=== PATIENT | female | born 1940 | race Caucasian/White ===

== ENCOUNTER 2016-12-07 09:53 | Emergency (ER) | payer MEDICARE, OTHER ==
[2016-12-07] MEDS ORDERED: PREDNISONE 20 MG TAB PO ONE (10:00)
--- NOTE | 2016-12-07 10:08 | Emergency Department Record ---
History of Present Illness - General Chief Complaint: Neck Injury/Pain Stated Complaint: NECK PAIN Time Seen by Provider: 12/07/16 10:00 Source: Patient, Family Mode of Arrival: Ambulatory Limitations: No limitations - History of Present Illness Initial Comments: 76 yo female presents with neck muscle pain since . She had five days of company and did more activity than usual. 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 No falls or trauma. No numbness, tingling, weakness, or new symptoms from prior experiences. She follows with Dr Mendoza. No fevers, No prior cervical spine surgery. MD Complaint: Neck pain Onset/Timin -: Days(s) Place: Home Radiation: Other Severity: Severe, Similar to prior neck pain Severity scale (1-10): 7 Quality: Sharp Improves With: Immobilization Worsens With: Movement of neck, Swallowing Context: Lifting Associated Symptoms: None Treatments Prior to Arrival: Ibuprofen, Cervical collar, Heat therapy - Related Data Home Medications Medication Instructions Recorded Confirmed Last Taken Fluticasone Propionate [Flonase] 1 inh INH DAILY 12/07/16 12/07/16 12/07/16 Previous Rx's Medication Instructions Recorded Prednisone [Prednisone 20Mg] 20 mg PO BID #10 tab 12/07/16 Allergies Allergy/AdvReac Type Severity Reaction Status Date / Time meperidine HCl [From Demerol] Allergy NAUSEA AND Verified 06/06/15 07:54 VOMITING neomycin Allergy HIVES Verified 06/06/15 07:54 Travel Screening - Travel/Exposure Within Last 30 Days Have you traveled within the last 30 days?: No Review of Systems Constitutional: Denies: Chills, Fever, Malaise, Weakness Eyes: Denies: Eye discharge ENT: Denies: Congestion, Throat pain Respiratory: Denies: Cough, Dyspnea, Hemoptysis, Stridor, Wheezes Cardiovascular: Reports: Palpitations (Follow up tomorrow with Dr Blake in [place]). Denies: Chest pain, Syncope Endocrine: Denies: Fatigue Gastrointestinal: Denies: Diarrhea, Nausea, Vomiting Genitourinary: Denies: Dysuria, Urgency Musculoskeletal: Reports: As per HPI, Arthralgia, Neck pain Skin: Denies: Bruising, Change in color, Rash Neurological: Reports: Numbness (chronic right 5th finger. No new or changed). Denies: Headache, Weakness Psychiatric: Denies: Anxiety Hematological/Lymphatic: Denies: Easy bleeding, Easy bruising Past Medical History - SOCIAL HISTORY Smoking Status: Light tobacco smoker (<10/day) - RESPIRATORY Hx Respiratory Disorders: Yes Hx Asthma: Yes - CARDIOVASCULAR Hx Cardio Disorders: Yes Hx Hypertension: Yes - NEURO Hx Neuro Disorders: Yes Hx Dizziness: Yes - GI Hx GI Disorders: Yes Hx Diverticulitis: Yes Hx Reflux: Yes Hx Irritable Bowel: Yes - Hx Genitourinary Disorders: No - ENDOCRINE Hx Endocrine Disorders: No - MUSCULOSKELETAL Hx Musculoskeletal Disorders: Yes Hx Fibromyalgia: Yes Comment:: degenerative neck - PSYCH Hx Psych Problems: Yes Hx Anxiety: Yes (hx panic attacks) - HEMATOLOGY/ONCOLOGY Hx Hematology/Oncology Disorders: Yes Comment:: lymphocytosis Family Medical History *Cancer Comment: uncle Hx Dementia: Mother, Brother/Sister Hx Heart Disease: Father Physical Exam - General General Appearance: Alert, Oriented x3, Cooperative, No acute distress Limitations: No limitations - Head Head exam: Normal inspection - Eye Eye exam: Normal appearance, PERRL. negative: Conjunctival injection, Periorbital swelling Pupils: Normal accommodation - ENT ENT exam: Normal exam, Mucous membranes moist, Normal orophraynx Ear exam: Normal external inspection Nasal Exam: Normal inspection Mouth exam: Normal external inspection Teeth exam: Normal inspection Throat exam: Normal inspection - Neck Neck exam: Normal inspection, Full ROM, Tenderness (left paraspinal, no rash, no deformity). negative: Meningismus - Respiratory Respiratory exam: Normal lung sounds bilaterally. negative: Respiratory distress - Cardiovascular Cardiovascular Exam: Regular rate, Normal rhythm, Normal heart sounds Peripheral Pulses: 2+: Radial (R), Radial (L) - Rectal Rectal exam: Deferred - exam: Deferred - Extremities Extremities exam: Normal inspection. negative: Tenderness - Back Back exam: Reports: Normal inspection, Full ROM. 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 negative: Motor sensory deficit - Psychiatric Psychiatric exam: Normal affect, Normal mood - Skin Skin exam: Dry, Intact, Normal color, Warm Course Vital Signs 12/07/16 09:55 Temperature 97.7 F Pulse Rate 91 H Respiratory 16 Rate Blood Pressure 139/104 Pulse Ox 98 Disposition Disposition: Discharge Clinical Impression: Cervical sprain Qualifiers: Encounter type: initial encounter Qualified Code(s): S13.9XXA - Sprain of joints and ligaments of unspecified parts of neck, initial encounter Disposition: Home, Self-Care Condition: (1) Good Instructions: Cervical Sprain (ED) Additional Instructions: Follow up this week with Dr Mendoza Return immediately if you have fever, uncontrolled pain, weakness, numbness, arm radiation Prescriptions: Prednisone [Prednisone 20Mg] 20 mg PO BID #10 tab Forms: Patient Portal Access Time of Disposition: 10:07 Quality - Quality Measures Quality Measures: N/A - Blood Pressure Screening Does Patient Have Any of the Following: No Blood Pressure Classification: Hypertensive Reading Systolic Measurement: 139 Diastolic Measurement: 104 Screening for High Blood Pressure: < Pre-Hypertensive BP, F/U Documented > [ G8950] Pre-Hypertensive Follow-up Interventions: Referral to alternative/primary care provider.
== END 2016-12-07 10:24 | disposition home or self-care (01) ==
LOC: ER 09:53
DX: S13.9XXA Sprain of joints and ligaments of unspecified parts of neck, initial encounter (principal); X50.9XXA Other and unspecified overexertion or strenuous movements or postures, initial encounter; Y92.009 Unspecified place in unspecified non-institutional (private) residence as the place of occurrence of the external cause
CPT/HCPCS: 99282; J7512

== ENCOUNTER 2016-12-20 09:45 | Emergency (ER) | payer MEDICARE, OTHER ==
[2016-12-20] MEDS ORDERED: DIAZEPAM 5 MG/1 ML TUBX IM ONE (10:29)
--- NOTE | 2016-12-20 11:00 | Emergency Department Record ---
History of Present Illness - General Chief Complaint: Neck Injury/Pain Stated Complaint: NECK PAIN Time Seen by Provider: 12/20/16 10:15 Source: Patient Mode of Arrival: Ambulatory Limitations: No limitations - History of Present Illness Initial Comments: pt has a hx of chronic neck pain, djd. she was lifting something 2 wks ago and had an increase in pain. she came in and was given a course of steroids which usualoy help but they did not this time. she has contd to have pain. she has no numbness. she does not want pain meds Complaint: Neck pain Onset/Timin -: Days(s) Place: Home Radiation: Other Severity: Mild, Similar to prior neck pain Quality: Other Consistency: Constant Improves With: Immobilization, Remaining still Worsens With: None Associated Symptoms: None Treatments Prior to Arrival: None - Related Data Allergies Allergy/AdvReac Type Severity Reaction Status Date / Time meperidine HCl [From Demerol] Allergy NAUSEA AND Verified 12/07/16 10:03 VOMITING neomycin Allergy HIVES Verified 12/07/16 10:03 Travel Screening - Travel/Exposure Within Last 30 Days Have you traveled within the last 30 days?: No Review of Systems Reviewed: No additional complaints except as noted below Constitutional: Reports: As per HPI. Denies: Chills, Fever, Malaise, Night sweats, Weakness, Weight change Eyes: Reports: As per HPI. Denies: Eye discharge, Eye pain, Photophobia, Vision change ENT: Reports: As per HPI. Denies: Congestion, Dental pain, Ear pain, Epistaxis , Hearing loss, Throat pain Respiratory: Reports: As per HPI. Denies: Cough, Dyspnea, Hemoptysis, Stridor, Wheezes Cardiovascular: Reports: As per HPI. Denies: Arrhythmia, Chest pain, Dyspnea on exertion, Edema, Murmurs, Orthopnea, Palpitations, Paroxysmal nocturnal dyspnea, Rheumatic Fever, Syncope Endocrine: Reports: As per HPI. Denies: Fatigue, Heat or cold intolerance, Polydipsia, Polyuria Gastrointestinal: Reports: As per HPI. Denies: Abdominal pain, Constipation, Diarrhea, Hematemesis, Hematochezia, Melena, Nausea, Vomiting Genitourinary: Reports: As per HPI. Denies: Abnormal menses, Discharge, Dyspareunia, Dysuria, Frequency, Hematuria, Incontinence, Retention, Urgency Musculoskeletal: Reports: As per HPI. Denies: Arthralgia, Back pain, Gout, Joint swelling, Myalgia, Neck pain Skin: Reports: As per HPI. Denies: Bruising, Change in color, Change in hair/ nails, Lesions, Pruritus, Rash Neurological: Reports: As per HPI. Denies: Abnormal gait, Confusion, Headache, Numbness, Paresthesias, Seizure, Tingling, Tremors, Vertigo, Weakness Psychiatric: Reports: As per HPI. Denies: Anxiety, Auditory hallucinations, Depression, Homicidal thoughts, Suicidal thoughts, Visual hallucinations Hematological/Lymphatic: Reports: As per HPI. Denies: Anemia, Blood Clots, Easy bleeding, Easy bruising, Swollen glands Past Medical History - SOCIAL HISTORY Smoking Status: Light tobacco smoker (<10/day) Alcohol Use: None Drug Use: None - RESPIRATORY Hx Respiratory Disorders: Yes Hx Asthma: Yes - CARDIOVASCULAR Hx Cardio Disorders: Yes Hx Hypertension: Yes - NEURO Hx Neuro Disorders: Yes Hx Dizziness: Yes - GI Hx GI Disorders: Yes Hx Diverticulitis: Yes Hx Reflux: Yes Hx Irritable Bowel: Yes - Hx Genitourinary Disorders: No - ENDOCRINE Hx Endocrine Disorders: No - MUSCULOSKELETAL Hx Musculoskeletal Disorders: Yes Hx Fibromyalgia: Yes Comment:: degenerative neck - PSYCH Hx Psych Problems: Yes Hx Anxiety: Yes (hx panic attacks) - HEMATOLOGY/ONCOLOGY Hx Hematology/Oncology Disorders: Yes Comment:: lymphocytosis Family Medical History Any Significant Family History?: Yes *Cancer Comment: uncle Hx Dementia: Mother, Brother/Sister Hx Heart Disease: Father Physical Exam - General General Appearance: Alert, Oriented x3, Cooperative, Mild distress - Head Head exam: Normal inspection - Eye Eye exam: Normal appearance, PERRL, EOMI Pupils: Normal accommodation - ENT ENT exam: Normal exam, Mucous membranes moist, Normal external ear exam, Normal orophraynx Ear exam: Normal external inspection. negative: External canal tenderness Nasal Exam: Normal inspection. negative: Discharge, Sinus tenderness Mouth exam: Normal external inspection, Tongue normal Teeth exam: Normal inspection. negative: Dental caries Throat exam: Normal inspection. negative: Tonsillar erythema, Tonsillar exudate - Neck Neck exam: Normal inspection, Tenderness. negative: Full ROM - Respiratory Respiratory exam: Normal lung sounds bilaterally. negative: Respiratory distress - Cardiovascular Cardiovascular Exam: Regular rate, Normal rhythm, Normal heart sounds - GI/Abdominal GI/Abdominal exam: Soft, Normal bowel sounds. negative: Tenderness - Rectal Rectal exam: Deferred - exam: Deferred - Extremities Extremities exam: Normal inspection, Full ROM, Normal capillary refill. negative: Tenderness - Back Back exam: Reports: Normal inspection, Full ROM. Denies: Muscle spasm, Rash noted, Tenderness - Neurological Neurological exam: Alert, CN II-XII intact, Normal gait, Oriented X3 - Psychiatric Psychiatric exam: Normal affect, Normal mood - Skin Skin exam: Dry, Intact, Normal color, Warm Course Vital Signs 12/20/16 09:49 Temperature 97.7 F Pulse Rate 108 H Respiratory 20 Rate Blood Pressure 134/45 Pulse Ox 98 Disposition Disposition: Discharge Clinical Impression: Cervical strain, acute Qualifiers: Encounter type: initial encounter Qualified Code(s): S16.1XXA - Strain of muscle, fascia and tendon at neck level, initial encounter Disposition: Home, Self-Care Forms: Patient Portal Access Quality - Blood Pressure Screening Does Patient Have Any of the Following: No Blood Pressure Classification: Pre-Hypertensive BP Reading Systolic Measurement: 134 Diastolic Measurement: 45 Screening for High Blood Pressure: < Pre-Hypertensive BP, F/U Documented > [ G8950]
== END 2016-12-20 11:22 | disposition home or self-care (01) ==
LOC: ER 09:45
DX: S16.1XXA Strain of muscle, fascia and tendon at neck level, initial encounter (principal); X50.9XXA Other and unspecified overexertion or strenuous movements or postures, initial encounter; Y92.009 Unspecified place in unspecified non-institutional (private) residence as the place of occurrence of the external cause
CPT/HCPCS: 96372; 99283; J3360

== ENCOUNTER 2017-02-09 02:40 | Emergency (ER) | payer MEDICARE, OTHER ==
[2017-02-09] MEDS ORDERED: METHYLPREDNISOLONE PF 125MG/VIAL IM ONE (02:56)
--- NOTE | 2017-02-09 03:02 | Emergency Department Record ---
History of Present Illness - General Chief Complaint: Neck Injury/Pain Stated Complaint: severe neck pain Time Seen by Provider: 02/09/17 02:41 Source: Patient Mode of Arrival: Ambulatory Limitations: No limitations - History of Present Illness Initial Comments: 76 yo female presents to ED with an exacerbation of her chronic neck pain symptoms. Patient reports a history of similar episodes which typically improve with either Prednisone or Valium in addition to Advil, patient reports that Valium and Advil were not helping significantly over the past several days. Patient denies fevers, chill, or recent injury. Patient also denies numbness, tingling, or extremity weakness symptoms. MD Complaint: Neck pain Onset/Timin -: Hour(s) Place: Home Severity: Severe Severity scale (1-10): 10 Quality: Aching Consistency: Constant Improves With: Immobilization Worsens With: Movement of neck Associated Symptoms: None Treatments Prior to Arrival: Ibuprofen, Prescription pain med, Other - Related Data Previous Rx's Medication Instructions Recorded Diazepam [Valium] 5 mg PO TID #14 tab 12/20/16 Prednisone [Prednisone 20Mg] 20 mg PO BID #14 tab 02/09/17 Allergies Allergy/AdvReac Type Severity Reaction Status Date / Time meperidine HCl [From Demerol] Allergy NAUSEA AND Verified 12/07/16 10:03 VOMITING neomycin Allergy HIVES Verified 12/07/16 10:03 Travel Screening - Travel/Exposure Within Last 30 Days Have you traveled within the last 30 days?: No - Travel/Exposure Within Last Year Have you traveled outside the [place] in the last year?: No - Additonal Travel Details Have you been exposed to anyone with a communicable illness?: No - Travel Symptoms Symptom Screening: None Review of Systems Constitutional: Denies: Chills, Fever, Malaise, Night sweats Eyes: Denies: Eye discharge, Eye pain ENT: Denies: Congestion, Ear pain, Epistaxis Respiratory: Denies: Cough, Dyspnea Cardiovascular: Denies: Chest pain, Dyspnea on exertion Endocrine: Denies: Fatigue, Heat or cold intolerance Gastrointestinal: Denies: Abdominal pain, Nausea, Vomiting Genitourinary: Denies: Incontinence, Retention Musculoskeletal: Reports: Neck pain. Denies: Arthralgia, Back pain, Gout, Joint swelling Skin: Denies: Bruising, Change in color Neurological: Denies: Abnormal gait, Confusion, Headache, Numbness, Paresthesias , Tingling Psychiatric: Denies: Anxiety Hematological/Lymphatic: Denies: Anemia, Blood Clots Past Medical History - SOCIAL HISTORY Smoking Status: Light tobacco smoker (<10/day) Alcohol Use: None Drug Use: None - RESPIRATORY Hx Respiratory Disorders: Yes Hx Asthma: Yes - CARDIOVASCULAR Hx Cardio Disorders: Yes Hx Hypertension: Yes - NEURO Hx Neuro Disorders: Yes Hx Dizziness: Yes - GI Hx GI Disorders: Yes Hx Diverticulitis: Yes Hx Reflux: Yes Hx Irritable Bowel: Yes - Hx Genitourinary Disorders: No - ENDOCRINE Hx Endocrine Disorders: No - MUSCULOSKELETAL Hx Musculoskeletal Disorders: Yes Hx Fibromyalgia: Yes Comment:: degenerative neck - PSYCH Hx Psych Problems: Yes Hx Anxiety: Yes (hx panic attacks) - HEMATOLOGY/ONCOLOGY Hx Hematology/Oncology Disorders: Yes Comment:: lymphocytosis Family Medical History Any Significant Family History?: No *Cancer Comment: uncle Hx Dementia: Mother, Brother/Sister Hx Heart Disease: Father Physical Exam - General General Appearance: Alert, Oriented x3, Cooperative, Mild distress, Other (soft collar in place) Limitations: No limitations - Head Head exam: Atraumatic, Normocephalic, Normal inspection Head exam detail: negative: Abrasion, Contusion, Stern's sign, General tenderness, Hematoma, Laceration - Eye Eye exam: Normal appearance. negative: Conjunctival injection, Periorbital swelling, Periorbital tenderness, Scleral icterus - ENT Ear exam: negative: Auricular hematoma, Auricular trauma Nasal Exam: negative: Active bleeding, Discharge, Dried blood, Foreign body Mouth exam: negative: Drooling, Laceration, Muffled voice, Tongue elevation - Neck Neck exam: Tenderness, Other (Mild TTP along the C6 region bilaterally) - Respiratory Respiratory exam: Normal lung sounds bilaterally. negative: Respiratory distress, Rhonchi, Stridor, Wheezes - Cardiovascular Cardiovascular Exam: Regular rate, Normal rhythm, Normal heart sounds - GI/Abdominal GI/Abdominal exam: Soft. negative: Rebound, Rigid, Tenderness - Rectal Rectal exam: Deferred - exam: Deferred - Extremities Extremities exam: Normal inspection. negative: Calf tenderness, Pedal edema, Tenderness - Back Back exam: Denies: CVA tenderness (R), CVA tenderness (L) - Neurological Neurological exam: Alert, Normal gait, Oriented X3. negative: Motor sensory deficit - Psychiatric Psychiatric exam: Normal affect, Normal mood - Skin Skin exam: Normal color. negative: Abrasion Type of lesion: negative: abrasion Course Vital Signs 02/09/17 02:41 Temperature 97.5 F L Pulse Rate 69 Respiratory 20 Rate Blood Pressure 156/114 Pulse Ox 98 - Reevaluation(s) Reevaluation #1: 02/09/17 03:03 Patient seen and examined, reports that she is opposed to narcotic pain medication. Will administer solumedrol IM and prescribe Prednisone in addition to Valium that the patient has at home currently. Patient appears stable for discharge at this time. Disposition Disposition: Discharge Clinical Impression: Cervical pain (neck) Disposition: Home, Self-Care Condition: (2) Stable Instructions: Neck Pain (ED) Additional Instructions: Return to ED if your symptoms worsen of if you have any concerns. Prednisone as directed. Follow-up with your family doctor in 1-3 days as directed. Prescriptions: Prednisone [Prednisone 20Mg] 20 mg PO BID #14 tab Forms: Patient Portal Access Time of Disposition: 03:08 Quality - Quality Measures Quality Measures: N/A - Blood Pressure Screening Does Patient Have Any of the Following: No Blood Pressure Classification: Hypertensive Reading Systolic Measurement: 156 Diastolic Measurement: 114 Screening for High Blood Pressure: < First Hypertensive BP, F/U Documented > [ G8950] First Hypertensive Follow-up Interventions: Referral to alternative/primary care provider.
== END 2017-02-09 03:26 | disposition home or self-care (01) ==
LOC: ER 02:40
DX: G89.21 Chronic pain due to trauma (principal); M54.2 Cervicalgia
CPT/HCPCS: 96372; 99283; J2930

== ENCOUNTER 2017-11-01 10:09 | Emergency (ER) | payer MEDICARE, OTHER ==
[2017-11-01] MEDS ORDERED: ACETAMINOPHEN 1,000 MG/100 ML BTL IVPB ONE (10:35)
[2017-11-01] MEDS ORDERED: 0.9 % SODIUM CHLORIDE 1,000 ML BAG IV ONE (10:35)
--- NOTE | 2017-11-01 11:05 | Emergency Department Record ---
History of Present Illness - General Chief Complaint: Abdominal Pain Stated Complaint: FEVER,ABD PAIN Time Seen by Provider: 11/01/17 10:31 Source: Patient, Family Mode of Arrival: Ambulatory Limitations: No limitations - History of Present Illness Initial Comments: 77 yo female presents with about 5-6 days of increasing LLQ pain. She has had some fevers as well. No diarrhea. Her bowel movements have become more firm. The pain stays in the LLQ. If is fairly constant. No vomiting. She has a history of recurrent diverticulitis in the past. No rash. No dysuria. MD Complaint: Abdominal pain Onset/Timin -: Days(s) Location: LLQ Radiation: None Migration to: LLQ Severity: Moderate Severity scale (1-10): 8 Quality: Sharp Consistency: Intermittent Improves With: Nothing Worsens With: Nothing Associated Symptoms: Other - Related Data Previous Rx's Medication Instructions Recorded Amoxicillin/Potassium Clav 1 tab PO BID #20 tab 11/01/17 [Augmentin 875-125 Tablet] Ondansetron [Zofran Odt] 4 mg PO Q8H #20 tab.rapdis 11/01/17 Allergies Allergy/AdvReac Type Severity Reaction Status Date / Time meperidine HCl [From Demerol] Allergy NAUSEA AND Verified 11/01/17 10:21 VOMITING neomycin Allergy HIVES Verified 11/01/17 10:21 metronidazole [From Flagyl] AdvReac VOMITING Verified 11/01/17 14:00 Travel Screening - Travel/Exposure Within Last 30 Days Have you traveled within the last 30 days?: No - Travel/Exposure Within Last Year Have you traveled outside the [place] in the last year?: No - Additonal Travel Details Have you been exposed to anyone with a communicable illness?: No - Travel Symptoms Symptom Screening: None Review of Systems Constitutional: Reports: Fever, Malaise. Denies: Chills Eyes: Denies: Eye discharge ENT: Denies: Congestion, Throat pain Respiratory: Denies: Cough Cardiovascular: Denies: Chest pain, Syncope Endocrine: Denies: Fatigue Gastrointestinal: Reports: As per HPI, Abdominal pain, Constipation. Denies: Diarrhea, Nausea, Vomiting Genitourinary: Denies: Dysuria, Urgency Musculoskeletal: Denies: Arthralgia, Back pain, Myalgia, Neck pain Skin: Denies: Bruising, Change in color, Rash Neurological: Denies: Headache, Numbness, Weakness Psychiatric: Denies: Anxiety Hematological/Lymphatic: Denies: Easy bleeding, Easy bruising Past Medical History - SOCIAL HISTORY Smoking Status: Former smoker Alcohol Use: Rare Drug Use: None - RESPIRATORY Hx Respiratory Disorders: Yes Hx Asthma: Yes - CARDIOVASCULAR Hx Cardio Disorders: Yes Hx Hypertension: Yes - NEURO Hx Neuro Disorders: Yes Hx Dizziness: Yes - GI Hx GI Disorders: Yes Hx Diverticulitis: Yes Hx Reflux: Yes Hx Irritable Bowel: Yes - Hx Genitourinary Disorders: No - ENDOCRINE Hx Endocrine Disorders: No - MUSCULOSKELETAL Hx Musculoskeletal Disorders: Yes Hx Fibromyalgia: Yes Comment:: degenerative neck - PSYCH Hx Psych Problems: Yes Hx Anxiety: Yes (hx panic attacks) - HEMATOLOGY/ONCOLOGY Hx Hematology/Oncology Disorders: Yes Comment:: lymphocytosis Family Medical History Any Significant Family History?: Yes *Cancer Comment: uncle Hx Dementia: Mother, Brother/Sister Hx Heart Disease: Father Physical Exam - General General Appearance: Alert, Oriented x3, Cooperative, No acute distress Limitations: No limitations - Head Head exam: Normal inspection - Eye Eye exam: Normal appearance. negative: Conjunctival injection, Scleral icterus - ENT ENT exam: Normal exam Ear exam: Normal external inspection Nasal Exam: Normal inspection Mouth exam: Normal external inspection - Neck Neck exam: Normal inspection - Respiratory Respiratory exam: Normal lung sounds bilaterally. negative: Respiratory distress - Cardiovascular Cardiovascular Exam: Normal rhythm, Normal heart sounds, Tachycardia - GI/Abdominal GI/Abdominal exam: Soft, Tenderness (Very soft abdomen, she is tender in the LLQ , intact bowel sounds). negative: Distended, Guarding, Rebound, Rigid - Rectal Rectal exam: Deferred - exam: Deferred - Extremities Extremities exam: Normal inspection, Full ROM, Normal capillary refill. negative: Tenderness - Back Back exam: Denies: CVA tenderness (R), CVA tenderness (L) - Neurological Neurological exam: Alert, Oriented X3 - Psychiatric Psychiatric exam: Normal affect, Normal mood - Skin Skin exam: Dry, Intact, Normal color, Warm Course Vital Signs 11/01/17 10:24 Temperature 100.9 F H Pulse Rate 120 H Respiratory 18 Rate Blood Pressure 108/72 Pulse Ox 95 - Reevaluation(s) Reevaluation #1: 11/01/17 11:50 The CBC was reviewed. WBC is 3.2. She has a chronic WBC count between 3 and 4 since 2013 She reports pain is well controlled. Temperature improved. 11/01/17 12:07 Normal renal function. Ready for CT. Medical Decision Making - Lab Data Result diagrams: 11/01/17 10:50 11/01/17 10:50 Disposition Disposition: Discharge Clinical Impression: Diverticulitis Disposition: Home, Self-Care Condition: (1) Good Additional Instructions: Liquid diet the next week Call your doctor tomorrow for close follow up Return if you have fever, pain, vomiting Take the antibiotic until gone Prescriptions: Amoxicillin/Potassium Clav [Augmentin 875-125 Tablet] 1 tab PO BID #20 tab Ondansetron [Zofran Odt] 4 mg PO Q8H #20 tab.rapdis Forms: Patient Portal Access Time of Disposition: 14:10 Quality - Quality Measures Quality Measures: N/A - Blood Pressure Screening Does Patient Have Any of the Following: No Blood Pressure Classification: Normal BP Reading Systolic Measurement: 108 Diastolic Measurement: 72 Screening for High Blood Pressure: < Normal BP, F/U Not Required > [G8783]
[2017-11-01 11:43] LABS: HEMATOCRIT 39.1 % (35.0-47.0); HEMOGLOBIN 12.7 gm/dl (11.6-16.0); MEAN CELL VOLUME 87.5 fl (81-97); MEAN CORPUSCULAR HEMOGLOBIN 28.4 pg (27-33); MEAN CORPUSCULAR HGB CONC 32.5 g/dl (32-36); MEAN PLATELET VOLUME 9.4 fl (7.4-10.4); PLATELET COUNT 309 K/uL (130-400); RED BLOOD COUNT 4.47 M/uL (3.80-5.40); RED CELL DISTRIBUTION WIDTH 15.1 % (11.5-14.5); WHITE BLOOD COUNT W/O DIFF 3.2 K/uL (4.2-12.2)
[2017-11-01 11:54] LABS: BLOOD UREA NITROGEN 12 mg/dL (8-23); CREATININE 0.8 mg/dL (0.5-0.9); EST GLOMERULAR FILTRATION RATE > 60 mL/min
[2017-11-01 11:55] LABS: PLATELET ESTIMATE NORMAL (NORMAL); TOTAL PROTEIN 7.7 g/dL (6.6-8.7)
[2017-11-01 11:57] LABS: GLUCOSE,RANDOM 114 mg/dL (74-109)
[2017-11-01 11:59] LABS: ALB/GLOB RATIO 1.4 (1.1-1.8); ALBUMIN 4.5 g/dL (4.0-5.0); ALT/SGPT 17 U/L (<33); AST/SGOT 21 U/L (10.0-35.0)
[2017-11-01 12:00] LABS: ALKALINE PHOSPHATASE 80 U/L (35-104); LIPASE 30 U/L (13-60)
[2017-11-01 12:17] LABS: URINE APPEARANCE CLEAR; URINE BILIRUBIN NEGATIVE (NEGATIVE); URINE BLOOD TRACE-I (NEGATIVE); URINE COLOR YELLOW; URINE GLUCOSE (UA) NEGATIVE (NEGATIVE); URINE KETONE 15 mg/dL (NEGATIVE); URINE LEUKOCYTE ESTERASE NEGATIVE (NEGATIVE); URINE NITRITE NEGATIVE (NEGATIVE); URINE PROTEIN NEGATIVE (NEGATIVE); URINE UROBILINOGEN 0.2 E.U./dL (0.20 - 1.00)
[2017-11-01 12:40] LABS: URINE BACTERIA FEW; URINE RBC 0 - 2 (NONE SEEN); URINE WBC 0 - 2 (0-2/hpf)
[2017-11-01] MEDS ORDERED: CIPROFLOXACIN HCL 500 MG TABLET PO ONE (13:46)
[2017-11-01] MEDS ORDERED: METRONIDAZOLE 250 MG TABLET PO ONE (13:46)
[2017-11-01] MEDS ORDERED: AMOXICILLIN/POTASSIUM CLAV 875MG/125MG TABLET PO ONE (14:07)
--- NOTE | 2017-11-02 14:32 | CT SCAN REPORT ---
EXAM: CT OF THE ABDOMEN AND PELVIS WITH CONTRAST HISTORY: LEFT LOWER QUADRANT PAIN. INTERMITTENT FEVER FOR TEN DAYS. PREVIOUS HYSTERECTOMY AND APPENDECTOMY. TECHNIQUE: Routine CT images of the abdomen and pelvis were obtained following the intravenous administration of contrast. The amount and type of contrast is noted in the medical record. FINDINGS: There is mild basilar atelectasis or scarring. The gallbladder is present. The liver, pancreas, spleen, and adrenals are unremarkable. The kidneys enhance and excrete contrast normally. There is a moderate hiatal hernia. There is acute sigmoid diverticulitis with associated wall thickening and pericolonic inflammatory change. No evidence for abscess. Elsewhere there is prominent colonic diverticulosis. The appendix is surgically absent. The small bowel is normal in caliber. The bladder is unremarkable. The uterus is surgically absent. The aorta is tortuous though enhances normally with contrast. No aneurysmal dilatation. Mild scattered atherosclerosis. No abdominal or pelvic lymphadenopathy. Mild free fluid. Small fat containing periumbilical hernia. There is a small fat containing midline lower pelvic hernia and a small fat containing right inguinal hernia. No acute osseous abnormality. IMPRESSION: 1. ACUTE SIGMOID DIVERTICULITIS. 2. MODERATE HIATAL HERNIA. 3. SIMILAR FAT CONTAINING PERIUMBILICAL HERNIA, MIDLINE LOWER PELVIC HERNIA, AND RIGHT INGUINAL HERNIA. 4. OTHER CHRONIC FINDINGS ABOVE. JOB NUMBER: [id number] [facility]
== END 2017-11-01 15:13 | disposition home or self-care (01) ==
LOC: ER 10:09
DX: K57.32 Diverticulitis of large intestine without perforation or abscess without bleeding (principal); R50.81 Fever presenting with conditions classified elsewhere; I10 Essential (primary) hypertension; Z87.891 Personal history of nicotine dependence
CPT/HCPCS: 99284 ×2; 96365; 83690; 80053; 81001; 85027; 74177; Q9967; J7030

== ENCOUNTER 2018-05-10 09:55 | Day surgery (SDC) | payer MEDICARE, OTHER ==
[2018-05-10] MEDS ORDERED: PROPOFOL 10 MG/ML VIAL IV ONE (09:56)
[2018-05-10] MEDS ORDERED: LIDOCAINE 2% MDV (20MG/ML) 20ML VIAL IV ONE (09:56)
--- NOTE | 2018-05-13 10:10 | Operative Note ---
DATE OF SERVICE: 05/10/2018. DATE OF SURGERY: 05/10/2018. This is a patient of Roni Mendoza DO. OPERATION: Incomplete colonoscopy. Indication: Episodic bright red rectal bleeding. Patient also with history of adenoma polyps. She returns at this time after 5 years for surveillance. Anesthesia: Intravenous sedation was administered by the Department of Anesthesiology and included Diprivan titrated to effect. PROCEDURE: Following informed consent from this alert individual, including a discussion of the risks and benefits of the procedure and opportunity for patient to ask questions, with patient in the left lateral decubitus position, digital rectal examination was performed. No abnormalities were noted. Following this, the Olympus PCF 180 video colonoscope was inserted in the rectum without resistance. Rectal mucosa had a normal appearance with normal folds and distensibility. The sigmoid colon had extensive diverticulosis noted. There was marked redundancy of the colon at this point, as well, and despite washing the sigmoid with extensive amounts of water, the colonoscope could not be safely advanced due to marked redundancy and resistance. Patient has had previous surgeries, including hysterectomy. At that point, the colonoscope was then slowly withdrawn into the rectum. Retroflexion accomplished by air insufflation demonstrated hypertrophied anal papillae. There was no bleeding noted from the anus, and no definitive bleeding sites identified. The endoscope was straightened and removed. The patient tolerated the procedure well and was returned to the recovery area in stable condition. IMPRESSION: 1. Markedly redundant, fixed sigmoid colon with extensive diverticulosis, precluding advancement of the colonoscope safely through the sigmoid colon. 2. Hypertrophied anal papillae. RECOMMENDATIONS: With the polyp surveillance, I did recommend the patient have an air contrast barium enema, which will be arranged. Further recommendations may be forthcoming pending that study. As always, thank you for allowing me to participate in the care of your patient. CC: DO Roni Delgadillo DO MTDD
== END 2018-05-10 12:00 | disposition home or self-care (01) ==
LOC: HOP 09:55
PROVIDERS: ATTEND Internal Medicine Gastroenterology
DX: K62.5 Hemorrhage of anus and rectum (principal); Z86.010 Personal history of colon polyps; K57.30 Diverticulosis of large intestine without perforation or abscess without bleeding; K62.89 Other specified diseases of anus and rectum; K63.89 Other specified diseases of intestine; I10 Essential (primary) hypertension; K21.9 Gastro-esophageal reflux disease without esophagitis

== ENCOUNTER 2018-06-16 09:31 | Emergency (ER) | payer MEDICARE ==
--- NOTE | 2018-06-16 10:02 | Emergency Department Record ---
History of Present Illness - General Chief Complaint: Abdominal Pain Stated Complaint: DIVERTICULITIS FLAIR UP Time Seen by Provider: 06/16/18 09:56 Source: Patient, RN notes reviewed Mode of Arrival: Ambulatory - History of Present Illness Initial Comments: abdominal pain LLQ which started 5 days ago and much worse in the last 2 days. Patient has a history of diverticulitis and recently had a barium enema 2018 with extensive diverticulosis. Last flare up October 2017 and treated with augmentin. Patient was going to DR Mendoza's office but Dr. Mendoza was sick and so she came to the ED. Onset/Timin -: Days(s) Location: Suprapubic Severity: Moderate Severity scale (1-10): 5 Quality: Aching, Cramping Consistency: Intermittent Improves With: Nothing Worsens With: Nothing Associated Symptoms: Anorexia, Constipation - Related Data Previous Rx's Medication Instructions Recorded Amoxicillin/Potassium Clav 1 tab PO TID #30 tab 06/16/18 [Augmentin 500Mg/125Mg] Allergies Allergy/AdvReac Type Severity Reaction Status Date / Time meperidine HCl [From Demerol] Allergy NAUSEA AND Verified 06/16/18 09:38 VOMITING neomycin Allergy HIVES Verified 06/16/18 09:38 metronidazole [From Flagyl] AdvReac VOMITING Verified 06/16/18 09:38 Travel Screening - Travel/Exposure Within Last 30 Days Have you traveled within the last 30 days?: No - Travel/Exposure Within Last Year Have you traveled outside the [place] in the last year?: No - Additonal Travel Details Have you been exposed to anyone with a communicable illness?: No - Travel Symptoms Symptom Screening: None Review of Systems Reviewed: No additional complaints except as noted below Constitutional: Reports: As per HPI. Denies: Chills, Fever, Malaise, Night sweats, Weakness, Weight change Eyes: Reports: As per HPI. Denies: Eye discharge, Eye pain, Photophobia, Vision change ENT: Reports: As per HPI. Denies: Congestion, Dental pain, Ear pain, Epistaxis , Hearing loss, Throat pain Respiratory: Reports: As per HPI. Denies: Cough, Dyspnea, Hemoptysis, Stridor, Wheezes Cardiovascular: Reports: As per HPI. Denies: Arrhythmia, Chest pain, Dyspnea on exertion, Edema, Murmurs, Orthopnea, Palpitations, Paroxysmal nocturnal dyspnea, Rheumatic Fever, Syncope Endocrine: Reports: As per HPI. Denies: Fatigue, Heat or cold intolerance, Polydipsia, Polyuria Gastrointestinal: Reports: As per HPI, Abdominal pain, Nausea. Denies: Constipation, Diarrhea, Hematemesis, Hematochezia, Melena, Vomiting Genitourinary: Reports: As per HPI. Denies: Abnormal menses, Discharge, Dyspareunia, Dysuria, Frequency, Hematuria, Incontinence, Retention, Urgency Musculoskeletal: Reports: As per HPI. Denies: Arthralgia, Back pain, Gout, Joint swelling, Myalgia, Neck pain Skin: Reports: As per HPI. Denies: Bruising, Change in color, Change in hair/ nails, Lesions, Pruritus, Rash Neurological: Reports: As per HPI. Denies: Abnormal gait, Confusion, Headache, Numbness, Paresthesias, Seizure, Tingling, Tremors, Vertigo, Weakness Psychiatric: Reports: As per HPI. Denies: Anxiety, Auditory hallucinations, Depression, Homicidal thoughts, Suicidal thoughts, Visual hallucinations Hematological/Lymphatic: Reports: As per HPI. Denies: Anemia, Blood Clots, Easy bleeding, Easy bruising, Swollen glands Past Medical History - SOCIAL HISTORY Smoking Status: Former smoker Alcohol Use: None Drug Use: None - RESPIRATORY Hx Respiratory Disorders: Yes Hx Asthma: Yes - CARDIOVASCULAR Hx Cardio Disorders: Yes Hx Hypertension: Yes - NEURO Hx Neuro Disorders: Yes Hx Dizziness: Yes - GI Hx GI Disorders: Yes Hx Diverticulitis: Yes Hx Reflux: Yes Hx Irritable Bowel: Yes - Hx Genitourinary Disorders: No - ENDOCRINE Hx Endocrine Disorders: No - MUSCULOSKELETAL Hx Musculoskeletal Disorders: Yes Hx Fibromyalgia: Yes Comment:: degenerative neck - PSYCH Hx Psych Problems: Yes Hx Anxiety: Yes (hx panic attacks) - HEMATOLOGY/ONCOLOGY Hx Hematology/Oncology Disorders: Yes Comment:: lymphocytosis Family Medical History Any Significant Family History?: Yes *Cancer Comment: uncle Hx Dementia: Mother, Brother/Sister Hx Heart Disease: Father Physical Exam - General General Appearance: Alert, Oriented x3, Cooperative, No acute distress - Head Head exam: Normal inspection - Eye Eye exam: Normal appearance, PERRL Pupils: Normal accommodation - ENT ENT exam: Normal exam, Mucous membranes moist, Normal external ear exam, Normal orophraynx, TM's normal bilaterally Ear exam: Normal external inspection. negative: External canal tenderness Nasal Exam: Normal inspection. negative: Discharge, Sinus tenderness Mouth exam: Normal external inspection, Tongue normal Teeth exam: Normal inspection. negative: Dental caries Throat exam: Normal inspection. negative: Tonsillar erythema, Tonsillar exudate - Neck Neck exam: Normal inspection, Full ROM. negative: Tenderness - Respiratory Respiratory exam: Normal lung sounds bilaterally. negative: Respiratory distress - Cardiovascular Cardiovascular Exam: Regular rate, Normal rhythm, Normal heart sounds - GI/Abdominal GI/Abdominal exam: Soft, Normal bowel sounds, Tenderness (LLQ) - Rectal Rectal exam: Deferred - exam: Deferred - Extremities Extremities exam: Normal inspection, Full ROM, Normal capillary refill. negative: Tenderness - Back Back exam: Reports: Normal inspection, Full ROM. Denies: Muscle spasm, Rash noted, Tenderness - Neurological Neurological exam: Alert, Normal gait, Oriented X3, Reflexes normal - Psychiatric Psychiatric exam: Normal affect, Normal mood - Skin Skin exam: Dry, Intact, Normal color, Warm Course Vital Signs 06/16/18 09:41 Temperature 97.9 F Pulse Rate 108 H Respiratory 20 Rate Blood Pressure 115/64 Pulse Ox 97 - Reevaluation(s) Reevaluation #1: Discussed doing a CT exam and patient said she didn't feel that is necessary because she had that done before and she knows what her problem is. I told her if she gets worse she will need to have that done 06/16/18 10:32 Medical Decision Making - Data Complexity MDM Data: Labs Ordered and/or Reviewed (WBC 2,500) - Lab Data Result diagrams: 06/16/18 10:20 06/16/18 10:20 Disposition Clinical Impression: Diverticulitis Abdominal pain Qualifiers: Abdominal location: left lower quadrant Qualified Code(s): R10.32 - Left lower quadrant pain Disposition: Home, Self-Care Condition: (2) Stable Instructions: Diverticulitis (ED) Additional Instructions: low fiber diet for 3 weeks than increase diet to a high fiber diet follow up with Dr Mendoza in 2 to 6 days return to ED if she gets worse Prescriptions: Amoxicillin/Potassium Clav [Augmentin 500Mg/125Mg] 1 tab PO TID #30 tab Forms: Patient Portal Access Time of Disposition: 10:36 Quality - Quality Measures Quality Measures: N/A - Blood Pressure Screening Does Patient Have Any of the Following: No Blood Pressure Classification: Normal BP Reading Systolic Measurement: 115 Diastolic Measurement: 64 Screening for High Blood Pressure: < Normal BP, F/U Not Required > [G4089]
[2018-06-16 10:30] LABS: HEMATOCRIT 38.6 % (35.0-47.0); HEMOGLOBIN 12.6 gm/dl (11.6-16.0); MEAN CELL VOLUME 86.4 fl (81-97); MEAN CORPUSCULAR HEMOGLOBIN 28.2 pg (27-33); MEAN CORPUSCULAR HGB CONC 32.6 g/dl (32-36); MEAN PLATELET VOLUME 9.3 fl (7.4-10.4); PLATELET COUNT 288 K/uL (130-400); RED BLOOD COUNT 4.47 M/uL (3.80-5.40); RED CELL DISTRIBUTION WIDTH 14.6 % (11.5-14.5); WHITE BLOOD COUNT W/O DIFF 2.5 K/uL (4.2-12.2)
[2018-06-16 10:39] LABS: BLOOD UREA NITROGEN 12 mg/dL (8-23); CREATININE 0.8 mg/dL (0.5-0.9); EST GLOMERULAR FILTRATION RATE > 60 mL/min
[2018-06-16 10:40] LABS: LIPASE 29 U/L (13-60)
[2018-06-16 10:42] LABS: GLUCOSE,RANDOM 106 mg/dL (74-109)
== END 2018-06-16 10:52 | disposition home or self-care (01) ==
LOC: ER 09:31
DX: K57.92 Diverticulitis of intestine, part unspecified, without perforation or abscess without bleeding (principal); R10.32 Left lower quadrant pain; I10 Essential (primary) hypertension; Z87.891 Personal history of nicotine dependence
CPT/HCPCS: 80048; 83690; 85027; 99283

== ENCOUNTER 2018-11-02 09:30 | Emergency (ER) | payer MEDICARE ==
[2018-11-02] MEDS ORDERED: ONDANSETRON HCL IV 4 MG/2 ML VIAL IV ONE (10:25)
[2018-11-02] MEDS ORDERED: 0.9 % SODIUM CHLORIDE 1,000 ML BAG IV ONE (10:25)
[2018-11-02 10:41] LABS: HEMATOCRIT 39.8 % (35.0-47.0); HEMOGLOBIN 13.4 gm/dl (11.6-16.0); MEAN CELL VOLUME 81.7 fl (81-97); MEAN CORPUSCULAR HEMOGLOBIN 27.5 pg (27-33); MEAN CORPUSCULAR HGB CONC 33.7 g/dl (32-36); MEAN PLATELET VOLUME 10.6 fl (7.4-10.4); PLATELET COUNT 227 K/uL (130-400); RED BLOOD COUNT 4.87 M/uL (3.80-5.40); RED CELL DISTRIBUTION WIDTH 14.9 % (11.5-14.5); WHITE BLOOD COUNT W/O DIFF 2.8 K/uL (4.2-12.2)
[2018-11-02 10:52] LABS: BILIRUBIN,TOTAL 0.6 mg/dL (0.2-1.0); CREATININE 1.2 mg/dL (0.5-0.9)
[2018-11-02 10:58] LABS: ALB/GLOB RATIO 1.2 (1.1-1.8); ALBUMIN 4.3 g/dL (4.0-5.0)
--- NOTE | 2018-11-02 11:03 | Emergency Department Record ---
History of Present Illness - General Chief Complaint: Abdominal Pain Stated Complaint: ABD PAIN Time Seen by Provider: 11/02/18 10:09 Source: Patient, Family Mode of Arrival: Ambulatory Limitations: No limitations - History of Present Illness Initial Comments: pt has been having n/diarrhea, weakness for 4 days.she has abd cramping. MD Complaint: Abdominal pain Onset/Timin -: Days(s) Location: LUQ, LLQ Radiation: None Migration to: No migration Severity scale (1-10): 5 Quality: Cramping Consistency: Constant Improves With: Nothing Worsens With: Nothing Associated Symptoms: Diarrhea, Nausea - Related Data Patient : No Home Medications Medication Instructions Recorded Confirmed Last Taken Biotin 1 mg PO DAILY 11/02/18 11/02/18 Unknown [place]-3/Dha/Epa/Fish Oil [Fish Oil 1 each PO DAILY 11/02/18 11/02/18 Unknown 1,000 mg Softgel] Previous Rx's Medication Instructions Recorded Metronidazole [Flagyl] 500 mg PO Q8HR #42 tablet 11/02/18 Allergies Allergy/AdvReac Type Severity Reaction Status Date / Time meperidine HCl [From Demerol] Allergy NAUSEA AND Verified 06/16/18 09:38 VOMITING neomycin Allergy HIVES Verified 06/16/18 09:38 metronidazole [From Flagyl] AdvReac VOMITING Verified 06/16/18 09:38 Travel Screening - Travel/Exposure Within Last 30 Days Have you traveled within the last 30 days?: No Review of Systems Reviewed: No additional complaints except as noted below Constitutional: Reports: As per HPI. Denies: Chills, Fever, Malaise, Night sweats, Weakness, Weight change Eyes: Reports: As per HPI. Denies: Eye discharge, Eye pain, Photophobia, Vision change ENT: Reports: As per HPI. Denies: Congestion, Dental pain, Ear pain, Epistaxis, Hearing loss, Throat pain Respiratory: Reports: As per HPI. Denies: Cough, Dyspnea, Hemoptysis, Stridor, Wheezes Cardiovascular: Reports: As per HPI. Denies: Arrhythmia, Chest pain, Dyspnea on exertion, Edema, Murmurs, Orthopnea, Palpitations, Paroxysmal nocturnal dyspnea, Rheumatic Fever, Syncope Endocrine: Reports: As per HPI. Denies: Fatigue, Heat or cold intolerance, Polydipsia, Polyuria Gastrointestinal: Reports: As per HPI. Denies: Abdominal pain, Constipation, Diarrhea, Hematemesis, Hematochezia, Melena, Nausea, Vomiting Genitourinary: Reports: As per HPI. Denies: Abnormal menses, Discharge, Dyspareunia, Dysuria, Frequency, Hematuria, Incontinence, Retention, Urgency Musculoskeletal: Reports: As per HPI. Denies: Arthralgia, Back pain, Gout, Joint swelling, Myalgia, Neck pain Skin: Reports: As per HPI. Denies: Bruising, Change in color, Change in hair/nails, Lesions, Pruritus, Rash Neurological: Reports: As per HPI. Denies: Abnormal gait, Confusion, Headache, Numbness, Paresthesias, Seizure, Tingling, Tremors, Vertigo, Weakness Psychiatric: Reports: As per HPI. Denies: Anxiety, Auditory hallucinations, Depression, Homicidal thoughts, Suicidal thoughts, Visual hallucinations Hematological/Lymphatic: Reports: As per HPI. Denies: Anemia, Blood Clots, Easy bleeding, Easy bruising, Swollen glands Past Medical History - SOCIAL HISTORY Smoking Status: Former smoker - RESPIRATORY Hx Respiratory Disorders: Yes Hx Asthma: Yes - CARDIOVASCULAR Hx Cardio Disorders: Yes Hx Hypertension: Yes - NEURO Hx Neuro Disorders: Yes Hx Dizziness: Yes - GI Hx GI Disorders: Yes Hx Diverticulitis: Yes Hx Reflux: Yes Hx Irritable Bowel: Yes - Hx Genitourinary Disorders: No - ENDOCRINE Hx Endocrine Disorders: No - MUSCULOSKELETAL Hx Musculoskeletal Disorders: Yes Hx Fibromyalgia: Yes Comment:: degenerative neck - PSYCH Hx Psych Problems: Yes Hx Anxiety: Yes (hx panic attacks) - HEMATOLOGY/ONCOLOGY Hx Hematology/Oncology Disorders: Yes Comment:: lymphocytosis Family Medical History Any Significant Family History?: Yes *Cancer Comment: uncle Hx Dementia: Mother, Brother/Sister Hx Heart Disease: Father Physical Exam - General General Appearance: Alert, Oriented x3, Cooperative, Mild distress - Head Head exam: Normal inspection - Eye Eye exam: Normal appearance, PERRL, EOMI Pupils: Normal accommodation - ENT ENT exam: Normal exam, Mucous membranes moist, Normal external ear exam, Normal orophraynx, TM's normal bilaterally Ear exam: Normal external inspection. negative: External canal tenderness Nasal Exam: Normal inspection. negative: Discharge, Sinus tenderness Mouth exam: Normal external inspection, Tongue normal Teeth exam: Normal inspection. negative: Dental caries Throat exam: Normal inspection. negative: Tonsillar erythema, Tonsillar exudate - Neck Neck exam: Normal inspection, Full ROM. negative: Tenderness - Respiratory Respiratory exam: Normal lung sounds bilaterally. negative: Respiratory distress - Cardiovascular Cardiovascular Exam: Normal rhythm, Normal heart sounds, Tachycardia - GI/Abdominal GI/Abdominal exam: Soft, Normal bowel sounds, Tenderness - Rectal Rectal exam: Deferred - exam: Deferred - Extremities Extremities exam: Normal inspection, Full ROM, Normal capillary refill. negative: Tenderness - Back Back exam: Reports: Normal inspection, Full ROM. Denies: Muscle spasm, Rash noted, Tenderness - Neurological Neurological exam: Alert, CN II-XII intact, Normal gait, Oriented X3 - Psychiatric Psychiatric exam: Normal affect, Normal mood - Skin Skin exam: Dry, Intact, Normal color, Warm Course Vital Signs 11/02/18 09:37 Temperature 97.6 F Pulse Rate 114 H Respiratory 20 Rate Blood Pressure 118/45 Pulse Ox 98 Medical Decision Making - Lab Data Result diagrams: 11/02/18 09:40 11/02/18 09:40 Lab Results 11/02/18 Range/Units 09:40 WBC 2.8 L (4.2-12.2) K/uL RBC 4.87 (3.80-5.40) M/uL Hgb 13.4 (11.6-16.0) gm/dl Hct 39.8 (35.0-47.0) % MCV 81.7 (81-97) fl MCH 27.5 (27-33) pg MCHC 33.7 (32-36) g/dl RDW 14.9 H (11.5-14.5) % Plt Count 227 (130-400) K/uL MPV 10.6 H (7.4-10.4) fl Neutrophils % 51.0 (47-80) % Eosinophils % Not Reportable Basophils % Not Reportable Absolute Neutrophils Not Reportable Lymphocytes 26.0 (16-45) % Monocytes 23.0 H (0-9) % Disposition Disposition: Discharge Clinical Impression: C. difficile diarrhea Disposition: Home, Self-Care Condition: (1) Good Instructions: Clostridium Difficile Infection (ED) Additional Instructions: follow up with family doctor. return sooner if worse. push fluids. Prescriptions: Metronidazole [Flagyl] 500 mg PO Q8HR #42 tablet Forms: Patient Portal Access Quality - Quality Measures Quality Measures: N/A - Blood Pressure Screening Does Patient Have Any of the Following: No Blood Pressure Classification: Normal BP Reading Systolic Measurement: 118 Diastolic Measurement: 45 Screening for High Blood Pressure: < Normal BP, F/U Not Required > [G8791]
[2018-11-02 12:15] LABS: URINE BILIRUBIN NEGATIVE (NEGATIVE); URINE BLOOD SMALL (NEGATIVE); URINE COLOR YELLOW; URINE GLUCOSE (UA) NEGATIVE (NEGATIVE); URINE KETONE 15 mg/dL (NEGATIVE); URINE LEUKOCYTE ESTERASE NEGATIVE (NEGATIVE); URINE NITRITE NEGATIVE (NEGATIVE); URINE PROTEIN TRACE (NEGATIVE); URINE UROBILINOGEN 0.2 E.U./dL (0.20 - 1.00)
[2018-11-02 12:16] LABS: URINE APPEARANCE SL CLOUDY
[2018-11-02] MEDS ORDERED: POTASSIUM CHLORIDE 20 MEQ TABLET PO ONE (12:23)
[2018-11-02 12:25] LABS: URINE AMORPHOUS SEDIMENT 1+; URINE BACTERIA 1+; URINE EPITHELIAL CELLS 36 - 50 (FEW); URINE RBC 0 - 2 (NONE SEEN); URINE TRANSITIONAL EPI CELLS 0 - 2 /hpf; URINE WBC 0 - 2 (0-2/hpf)
[2018-11-02 14:37] LABS: CRYPTOSPORIDIUM PARVUM ANTIGEN NOT DETECTED (NOT DETECT); ROTOVIRUS NOT DETECTED (NOT DETECT)
[2018-11-02] MEDS ORDERED: HYDROMORPHONE HCL 2 MG/ML VIAL IVP ONE (15:08)
[2018-11-02 15:26] LABS: MOLECULAR C DIFF TOXIN SCREEN DETECTED (NOT DETECT)
== END 2018-11-02 15:55 | disposition home or self-care (01) ==
LOC: ER 09:30
DX: A04.72 Enterocolitis due to Clostridium difficile, not specified as recurrent (principal); M79.7 Fibromyalgia
CPT/HCPCS: 80053; 81001; 82272; 83690; 85027; 87329; 87425; 87427; 87493; 89055; 96374; 99283; 99284; J7030

== ENCOUNTER 2018-11-04 13:57 | Observation (INO) | payer MEDICARE ==
[2018-11-04] MEDS ORDERED: DICYCLOMINE HCL 10 MG CAPSULE PO ONE (14:22)
[2018-11-04] MEDS ORDERED: 0.9 % SODIUM CHLORIDE 1,000 ML BAG IV ONE (14:22)
--- NOTE | 2018-11-04 14:26 | Emergency Department Record ---
History of Present Illness - General Chief Complaint: Recheck - Other Stated Complaint: UTI Time Seen by Provider: 11/04/18 14:08 Source: Patient Mode of arrival: Ambulatory Limitations: No limitations - History of Present Illness Initial Comments: Pt returns with dx of C. Dif toxin diarrhea here 2 days ago. Taking Flagyl as instructed. States still having diarrhea. Able to tolerate small oral fluids but no real appetite. Crampy abdominal discomfort. No blood in stool. Pt concerned she is not better yet. Onset/Timin -: Days(s) Initial Visit For: Other Returns Today for: Other Symptoms Since Prior Visit: Other - Related Data Previous Rx's Medication Instructions Recorded Metronidazole [Flagyl] 500 mg PO Q8HR #42 tablet 11/02/18 Allergies Allergy/AdvReac Type Severity Reaction Status Date / Time meperidine HCl [From Demerol] Allergy NAUSEA AND Verified 11/04/18 14:11 VOMITING neomycin Allergy HIVES Verified 11/04/18 14:11 metronidazole [From Flagyl] AdvReac VOMITING Verified 11/04/18 14:11 Travel Screening - Travel/Exposure Within Last 30 Days Have you traveled within the last 30 days?: No - Travel/Exposure Within Last Year Have you traveled outside the [place] in the last year?: No - Additonal Travel Details Have you been exposed to anyone with a communicable illness?: No - Travel Symptoms Symptom Screening: None Review of Systems Constitutional: Reports: Fever. Denies: Chills, Weakness (stated temp of 101 at home ) Eyes: Denies: Eye discharge, Photophobia ENT: Denies: Congestion, Dental pain, Throat pain Respiratory: Denies: Cough, Dyspnea Cardiovascular: Denies: Arrhythmia, Chest pain, Syncope Endocrine: Denies: Fatigue, Polydipsia Gastrointestinal: Reports: As per HPI Musculoskeletal: Denies: Arthralgia Skin: Denies: Bruising Neurological: Denies: Abnormal gait, Headache, Tingling, Tremors Psychiatric: Denies: Anxiety Hematological/Lymphatic: Denies: Anemia Past Medical History - SOCIAL HISTORY Smoking Status: Former smoker Alcohol Use: None Drug Use: None - RESPIRATORY Hx Respiratory Disorders: Yes Hx Asthma: Yes - CARDIOVASCULAR Hx Cardio Disorders: Yes Hx Hypertension: Yes - NEURO Hx Neuro Disorders: Yes Hx Dizziness: Yes - GI Hx GI Disorders: Yes Hx Diverticulitis: Yes Hx Reflux: Yes Hx Irritable Bowel: Yes - Hx Genitourinary Disorders: No - ENDOCRINE Hx Endocrine Disorders: No - MUSCULOSKELETAL Hx Musculoskeletal Disorders: Yes Hx Fibromyalgia: Yes Comment:: degenerative neck - PSYCH Hx Psych Problems: Yes Hx Anxiety: Yes (hx panic attacks) - HEMATOLOGY/ONCOLOGY Hx Hematology/Oncology Disorders: Yes Comment:: lymphocytosis Family Medical History Any Significant Family History?: Yes *Cancer Comment: uncle Hx Dementia: Mother, Brother/Sister Hx Heart Disease: Father Physical Exam - General General Appearance: Alert, Oriented x3, Cooperative, No acute distress - Head Head exam: Normal inspection - Eye Eye exam: Normal appearance, PERRL - ENT ENT exam: Normal exam, Mucous membranes moist, Normal external ear exam, Normal orophraynx, TM's normal bilaterally - Neck Neck exam: Normal inspection, Full ROM. negative: Tenderness - Respiratory Respiratory exam: Normal lung sounds bilaterally. negative: Respiratory distress - Cardiovascular Cardiovascular Exam: Regular rate, Normal rhythm, Normal heart sounds - GI/Abdominal GI/Abdominal exam: Soft, Normal bowel sounds. negative: Distended, Guarding, Rebound, Tenderness - Extremities Extremities exam: Normal inspection. negative: Full ROM, Tenderness - Back Back exam: Reports: Normal inspection. Denies: Paraspinal tenderness - Neurological Neurological exam: Alert, Normal gait, Oriented X3 - Psychiatric Psychiatric exam: Normal affect, Normal mood - Skin Skin exam: Normal color. negative: Rash Course Vital Signs 11/04/18 14:12 Temperature 98.8 F Pulse Rate 107 H Respiratory 20 Rate Blood Pressure 121/82 Pulse Ox 97 - Reevaluation(s) Reevaluation #1: 11/04/18 14:26 Seen and examined. Chart lists allergy to Flagyl but states "I take it without any trouble". In the past she states it made her stomach upset. Labs ordered and IV fluids running. Reevaluation #2: 11/04/18 15:12 K+ is 2.9 with dehydration. PO K+ given and IV K+ added to fluids. Discussed with Kathi and plan is for admission and replacement. Pt and agree. Medical Decision Making - Management Options MDM Management: Additional Work-up Planned (e.g. ADM/Transfer/OP Study) - Data Complexity MDM Data: Labs Ordered and/or Reviewed - Lab Data Result diagrams: 11/04/18 14:20 11/04/18 14:20 Disposition Disposition: Admit Clinical Impression: C. difficile diarrhea, Hypokalemia, gastrointestinal losses Disposition: Still a Patient at [facility] Decision to Admit: Admit from ER Decision to Admit Date: 11/04/18 Decision to Admit Time: 17:06 Accepting Physician: Dr Mejia Time Discussed w/Accepting Physician: 15:12 (DEBORAH Armenta) Condition: (2) Stable Forms: Patient Portal Access Time of Disposition: 15:12 Quality - Quality Measures Quality Measures: N/A - Blood Pressure Screening Does Patient Have Any of the Following: No Blood Pressure Classification: Pre-Hypertensive BP Reading Systolic Measurement: 121 Diastolic Measurement: 82 Screening for High Blood Pressure: < Pre-Hypertensive BP, F/U Documented > [G8950] Pre-Hypertensive Follow-up Interventions: Follow-up with rescreen every year.
[2018-11-04 14:37] LABS: HEMATOCRIT 34.4 % (35.0-47.0); HEMOGLOBIN 11.8 gm/dl (11.6-16.0); MEAN CELL VOLUME 80.8 fl (81-97); MEAN CORPUSCULAR HEMOGLOBIN 27.7 pg (27-33); MEAN CORPUSCULAR HGB CONC 34.3 g/dl (32-36); MEAN PLATELET VOLUME 10.7 fl (7.4-10.4); PLATELET COUNT 224 K/uL (130-400); RED BLOOD COUNT 4.26 M/uL (3.80-5.40); RED CELL DISTRIBUTION WIDTH 15.1 % (11.5-14.5)
[2018-11-04 14:50] LABS: BLOOD UREA NITROGEN 10 mg/dL (8-23)
[2018-11-04 14:51] LABS: CREATININE 0.8 mg/dL (0.5-0.9); EST GLOMERULAR FILTRATION RATE > 60 mL/min
[2018-11-04 14:53] LABS: GLUCOSE,RANDOM 109 mg/dL (74-109)
[2018-11-04 14:55] LABS: ABSOLUTE NEUTROPHIL COUNT 3.55
[2018-11-04 14:57] LABS: PLATELET ESTIMATE NORMAL (NORMAL)
[2018-11-04] MEDS ORDERED: POTASSIUM CHLORIDE 20 MEQ/15ML CUP PO ONE (15:01)
[2018-11-04] MEDS ORDERED: POTASSIUM CHL 20MEQ IN 1L NS 20 MEQ/1,000 ML BAG IV ONE (15:02)
[2018-11-04 15:47] LABS: URINE APPEARANCE CLEAR; URINE BILIRUBIN NEGATIVE (NEGATIVE); URINE BLOOD SMALL (NEGATIVE); URINE COLOR YELLOW; URINE GLUCOSE (UA) NEGATIVE (NEGATIVE); URINE KETONE 15 mg/dL (NEGATIVE); URINE LEUKOCYTE ESTERASE NEGATIVE (NEGATIVE); URINE NITRITE NEGATIVE (NEGATIVE); URINE PROTEIN NEGATIVE (NEGATIVE); URINE UROBILINOGEN 0.2 E.U./dL (0.20 - 1.00)
[2018-11-04 15:55] LABS: URINE BACTERIA NONE SEEN; URINE WBC NONE SEEN (0-2/hpf)
[2018-11-04] MEDS ORDERED: 0.9 % SODIUM CHLORIDE 1000ML 1,000 ML IV PRN (17:12)
[2018-11-04] MEDS: METRONIDAZOLE 250 MG TABLET PO SCH (18:42)
[2018-11-05] MEDS: METRONIDAZOLE 250 MG TABLET PO SCH (00:15)
[2018-11-05 08:48] LABS: BLOOD UREA NITROGEN 7 mg/dL (8-23); CREATININE 0.7 mg/dL (0.5-0.9); EST GLOMERULAR FILTRATION RATE > 60 mL/min; GLUCOSE,RANDOM 90 mg/dL (74-109)
[2018-11-05] MEDS: VANCOMYCIN HCL 1 GM VIAL PO SCH ×2 (09:03→11:49)
[2018-11-05] MEDS ORDERED: SOD CHLOR 0.9% WITH KCL 40MEQ 40 MEQ/1,000 ML IV.SOLN IV ONE (09:14)
[2018-11-05] MEDS: POTASSIUM CHLORIDE 20 MEQ TABLET PO ONE ×2 (09:57→10:22)
[2018-11-05] MEDS ORDERED: POTASSIUM CHLORIDE 20 MEQ TABLET PO ONE (10:22)
--- NOTE | 2018-11-05 10:25 | History & Physical ---
History of Present Illness - Date of Service Date of Service for History & Physical: 11/05/18 - History of Present Illness Admitting Diagnosis: Hypokalemia and C. Dif diarrhea History of Present Illness: Mrs. Graham is a 78 year-old female who presented to the ED on 11/04/18 for a recheck of c. diff toxin diarrhea that was diagnosed 2 days prior. She had been taking flagyl 500mg tid as instructed. She c/o of persistent diarrhea, no appetite, and only able to tolerate small amts of oral fluids. Crampy abdominal discomfort, no blood in stool, pt. was concerned of no improvement. Stool culture collected on 11/02 also pos for salmonella. Her history includes: asthma, HTN, GERD, diverticulitis, IBS, fibro, degenerative cervical disc disease, lymphocytosis, and panic attacks. In the ED, her vitals were: BP 121/82, HR 107, RR 20, 97% on room air and 98.8F. Her labs revealed a K of 2.9 with dehydration. PO K+ 20mEq given and K+ 20mEq added to IV fluids. She was admitted for hyopkalemia and dehydration secondary to c. diff diarrhea. 11/05/18: Pt. continues to have several loss stools, occ incontinent of stool. Changed from flagyl to PO vanco- 125mg q6h. Will monitor for response, awaiting sensitivity from salmonella stool culture. Repeat labs this am revealed K+ of 2.9, mag 1.2 and phos 1.4. Ordered 40mEq K in 1000ml NS at 150/hr. Tele ordered. Will plan to replace mag with 6g. Will discuss transfer to facility w ith higher level of acuity for electrolyte replacement (no IV phos available at [facility], cental line access preferred). PCP: Dr. Mendoza Travel Screening - Travel/Exposure Within Last 30 Days Have you traveled within the last 30 days?: No - Travel/Exposure Within Last Year Have you traveled outside the [place] in the last year?: No - Additonal Travel Details Have you been exposed to anyone with a communicable illness?: No - Travel Symptoms Symptom Screening: None Review of Systems Constitutional: Reports: Fever. Denies: Chills, Weakness (stated temp of 101 at home ) Eyes: Denies: Eye discharge, Photophobia ENT: Denies: Congestion, Dental pain, Throat pain Respiratory: Denies: Cough, Dyspnea Cardiovascular: Denies: Arrhythmia, Chest pain, Syncope Endocrine: Denies: Fatigue, Polydipsia Gastrointestinal: Reports: As per HPI Musculoskeletal: Denies: Arthralgia Skin: Denies: Bruising Neurological: Denies: Abnormal gait, Headache, Tingling, Tremors Psychiatric: Denies: Anxiety Hematological/Lymphatic: Denies: Anemia Past Medical History - SOCIAL HISTORY Smoking Status: Former smoker Alcohol Use: Rare Drug Use: None - RESPIRATORY Hx Respiratory Disorders: Yes Hx Asthma: Yes - CARDIOVASCULAR Hx Cardio Disorders: Yes Hx Hypertension: Yes - NEURO Hx Neuro Disorders: Yes Hx Dizziness: Yes - GI Hx GI Disorders: Yes Hx Diverticulitis: Yes Hx Reflux: Yes Hx Irritable Bowel: Yes Comment:: cdiff diagnosed [facility] 11/02 - Hx Genitourinary Disorders: No - ENDOCRINE Hx Endocrine Disorders: No Hx Diabetes: No Hx Thyroid Disease: No - MUSCULOSKELETAL Hx Musculoskeletal Disorders: Yes Hx Fibromyalgia: Yes Comment:: degenerative neck - PSYCH Hx Psych Problems: Yes Hx Anxiety: Yes (hx panic attacks) - HEMATOLOGY/ONCOLOGY Hx Hematology/Oncology Disorders: Yes Comment:: lymphocytosis Family Medical History Any Significant Family History?: Yes *Cancer Comment: uncle Hx Dementia: Mother, Brother/Sister Hx Heart Disease: Father H&P Meds/Allergies - Allergies Allergies: Allergies Allergy/AdvReac Type Severity Reaction Status Date / Time meperidine HCl [From Demerol] Allergy NAUSEA AND Verified 11/04/18 14:11 VOMITING neomycin Allergy HIVES Verified 11/04/18 14:11 metronidazole [From Flagyl] AdvReac VOMITING Verified 11/04/18 14:11 - Home Medications Previous Rx's Medication Instructions Recorded Metronidazole [Flagyl] 500 mg PO Q8HR #42 tablet 11/02/18 - Active Medications Active Medications: Current Medications Sodium Chloride () 1,000 mls @ 125 mls/hr IV .Q8H PRN PRN Reason: LARGE VOLUME IV Last Admin: 11/04/18 22:41 Dose: 125 mls/hr Documented by: Potassium Chloride/Sodium Chloride (Potassium Chl 40meq/) 40 meq in 1,000 mls @ 150 mls/hr IV NOW ONE Stop: 11/05/18 15:53 Vancomycin HCl (Vancomycin Hcl) 125 mg PO Q6HR PARVEEN Stop: 11/10/18 08:16 Last Admin: 11/05/18 09:03 Dose: 125 mg Documented by: Physical Exam - Vital Signs Vital Signs: Vital Signs - Last 24 Hrs Temp Pulse Pulse Pulse Resp BP BP 11/05/18 08:32 18 11/05/18 01:12 99.1 F 106 H 18 149/73 11/04/18 20:40 16 11/04/18 17:55 99 H 18 11/04/18 17:12 98.8 F 112 H 18 141/72 11/04/18 16:30 98.8 F 107 H 18 121/82 11/04/18 16:29 99 H 18 116/71 11/04/18 14:12 98.8 F 107 H 20 121/82 Pulse Ox 11/05/18 08:32 11/05/18 01:12 96 11/04/18 20:40 11/04/18 17:55 11/04/18 17:12 96 11/04/18 16:30 98 11/04/18 16:29 98 11/04/18 14:12 97 - General General Appearance: Alert, Oriented x3, Cooperative, No acute distress Limitations: No limitations - Head Head exam: Normal inspection - Eye Eye exam: Normal appearance, PERRL - ENT ENT exam: Normal exam, Mucous membranes moist, Normal external ear exam, Normal orophraynx, TM's normal bilaterally - Neck Neck exam: Normal inspection, Full ROM. negative: Tenderness - Respiratory Respiratory exam: Normal lung sounds bilaterally. negative: Respiratory distress - Cardiovascular Cardiovascular Exam: Regular rate, Normal rhythm, Normal heart sounds - GI/Abdominal GI/Abdominal exam: Soft, Hyperactive bowel sounds, Other (incontinent of stool). negative: Distended, Guarding, Rebound, Tenderness - Extremities Extremities exam: Normal inspection. negative: Full ROM, Tenderness - Back Back exam: Reports: Normal inspection. Denies: Paraspinal tenderness - Neurological Neurological exam: Alert, Normal gait, Oriented X3 - Psychiatric Psychiatric exam: Normal affect, Normal mood - Skin Skin exam: Normal color. negative: Rash Results - Labs Result Diagrams: 11/04/18 14:20 11/05/18 08:30 Labs Last 24 Hours: Laboratory Results - last 24 hr 11/04/18 11/04/18 11/04/18 14:20 14:20 15:40 WBC 6.0 RBC 4.26 Hgb 11.8 Hct 34.4 L MCV 80.8 L MCH 27.7 MCHC 34.3 RDW 15.1 H Plt Count 224 MPV 10.7 H Neutrophils % 59.0 Eosinophils % Not Reportable Basophils % Not Reportable Absolute Neutrophils 3.55 Lymphocytes 25.0 Monocytes 16.0 H Platelet Estimate Normal RBC Morphology Normal Sodium 133 L Potassium 2.9 L* Chloride 92 L Carbon Dioxide 21.0 L Anion Gap 20.0 H BUN 10 Creatinine 0.8 Estimated GFR > 60 Random Glucose 109 Calcium 9.3 Phosphorus Magnesium Urine Color Yellow Urine Appearance Clear Urine pH 5.5 Ur Specific [place] 1.010 Urine Protein Negative Urine Glucose (UA) Negative Urine Ketones 15 mg/dl H Urine Blood Small H Urine Nitrite Negative Urine Bilirubin Negative Urine Urobilinogen 0.2 Ur Leukocyte Esterase Negative Urine RBC 3 - 6 Urine WBC None seen Ur Epithelial Cells 3 - 6 Urine Bacteria None seen 11/05/18 11/05/18 08:30 08:30 WBC RBC Hgb Hct MCV MCH MCHC RDW Plt Count MPV Neutrophils % Eosinophils % Basophils % Absolute Neutrophils Lymphocytes Monocytes Platelet Estimate RBC Morphology Sodium 135 L Potassium 2.9 L* Chloride 98 Carbon Dioxide 20.0 L Anion Gap 17.0 H BUN 7 L Creatinine 0.7 Estimated GFR > 60 Random Glucose 90 Calcium 8.1 L Phosphorus 1.4 L Magnesium 1.2 L Urine Color Urine Appearance Urine pH Ur Specific [place] Urine Protein Urine Glucose (UA) Urine Ketones Urine Blood Urine Nitrite Urine Bilirubin Urine Urobilinogen Ur Leukocyte Esterase Urine RBC Urine WBC Ur Epithelial Cells Urine Bacteria VTE H&P Assessment - Risk for VTE Risk for VTE: Yes Risk Level: Low Risk Assessment Date: 11/05/18 Risk Assessment Time: 10:31 VTE Orders Placed or Will Be Placed: Yes Plan - Detailed Diagnosis and Plan (1) C. difficile diarrhea Current Visit: Yes Status: Acute Base Code: A04.72 - ENTEROCOLITIS D/T CLOSTRIDIUM DIFFICILE, NOT SPCF RECUR Comment: 11/05/18: -Stool pos for c. diff on 11/02- failed OP treatment of flagyl 500mg tid -PO vanco started this am- 125mg q6h (2) Hypokalemia, gastrointestinal losses Current Visit: Yes Status: Acute Base Code: E87.6 - HYPOKALEMIA Comment: 11/05/18: -K+ on admission was 2.9, replaced with 20mEq PO and 20mEq IV -Repeat K+ this am was 2.9, ordered 40mEq IV in 1000ml NS and 20mEq PO. -Tele ordered (3) Salmonella Current Visit: Yes Status: Acute Base Code: A02.9 - SALMONELLA INFECTION, UNSPECIFIED Comment: 11/05/18: -Pos. salmonella in stool cutlure on 11/02- sensitivity pending (4) Hypomagnesemia Current Visit: Yes Status: Acute Base Code: E83.42 - HYPOMAGNESEMIA Comment: 11/05/18: -Mag 1.2 this am, will plan to replace with 6g over 3h (pending poss transfer) (5) At risk for deep venous thrombosis Current Visit: Yes Status: Acute Base Code: Z91.89 - OTH PERSONAL RISK FACTORS, NOT ELSEWHERE CLASSIFIED Comment: 11/05/18: -40mg sc lovenox qhs for prophylaxis (6) Full code status Current Visit: Yes Status: Acute Base Code: Z78.9 - OTHER SPECIFIED HEALTH STATUS Comment: 11/05/18: -Pt. is a full code
[2018-11-05] MEDS ORDERED: DICYCLOMINE HCL 10 MG CAPSULE PO PRN (10:49)
--- NOTE | 2018-11-05 11:00 | Discharge Summary ---
Providers Discharge Summary Date: 11/05/18 Date of admission: 11/04/18 17:07 Expected Date of Discharge: 11/05/18 Attending physician: CHE ABRAMS Primary care physician: Roni Mendoza D.O. Physical Exam - Vital Signs Vital Signs: Vital Signs - Last 24 Hrs Temp Pulse Pulse Pulse Resp BP BP 11/05/18 08:32 18 11/05/18 01:12 99.1 F 106 H 18 149/73 11/04/18 20:40 16 11/04/18 17:55 99 H 18 11/04/18 17:12 98.8 F 112 H 18 141/72 11/04/18 16:30 98.8 F 107 H 18 121/82 11/04/18 16:29 99 H 18 116/71 11/04/18 14:12 98.8 F 107 H 20 121/82 Pulse Ox 11/05/18 08:32 11/05/18 01:12 96 11/04/18 20:40 11/04/18 17:55 11/04/18 17:12 96 11/04/18 16:30 98 11/04/18 16:29 98 11/04/18 14:12 97 - General General Appearance: Alert, Oriented x3, Cooperative, No acute distress Limitations: No limitations - Head Head exam: Normal inspection - Eye Eye exam: Normal appearance, PERRL - ENT ENT exam: Normal exam, Mucous membranes moist, Normal external ear exam, Normal orophraynx, TM's normal bilaterally - Neck Neck exam: Normal inspection, Full ROM. negative: Tenderness - Respiratory Respiratory exam: Normal lung sounds bilaterally. negative: Respiratory distress - Cardiovascular Cardiovascular Exam: Regular rate, Normal rhythm, Normal heart sounds - GI/Abdominal GI/Abdominal exam: Soft, Hyperactive bowel sounds, Other (incontinent of stool). negative: Distended, Guarding, Rebound, Tenderness - Extremities Extremities exam: Normal inspection. negative: Full ROM, Tenderness - Back Back exam: Reports: Normal inspection. Denies: Paraspinal tenderness - Neurological Neurological exam: Alert, Normal gait, Oriented X3 - Psychiatric Psychiatric exam: Normal affect, Normal mood - Skin Skin exam: Normal color. negative: Rash Hospitalization - Hospitalization Admission Diagnosis: Hypokalemia and C. Dif diarrhea - Problem List/Discharge Diagnosis (1) C. difficile diarrhea Current Visit: Yes Status: Acute Base Code: A04.72 - ENTEROCOLITIS D/T CLOSTRIDIUM DIFFICILE, NOT SPCF RECUR Comment: 11/05/18: -Stool pos for c. diff on 11/02- failed OP treatment of flagyl 500mg tid -PO vanco started this am- 125mg q6h (2) Hypokalemia, gastrointestinal losses Current Visit: Yes Status: Acute Base Code: E87.6 - HYPOKALEMIA Comment: 11/05/18: -K+ on admission was 2.9, replaced with 20mEq PO and 20mEq IV -Repeat K+ this am was 2.9, ordered 40mEq IV in 1000ml NS and 20mEq PO. -Tele ordered (3) Salmonella Current Visit: Yes Status: Acute Base Code: A02.9 - SALMONELLA INFECTION, UNSPECIFIED Comment: 11/05/18: -Pos. salmonella in stool cutlure on 11/02- sensitivity pending (4) Hypomagnesemia Current Visit: Yes Status: Acute Base Code: E83.42 - HYPOMAGNESEMIA Comment: 11/05/18: -Mag 1.2 this am, will plan to replace with 6g over 3h (pending poss transfer) (5) At risk for deep venous thrombosis Current Visit: Yes Status: Acute Base Code: Z91.89 - OTH PERSONAL RISK FACTORS, NOT ELSEWHERE CLASSIFIED Comment: 11/05/18: -40mg sc lovenox qhs for prophylaxis (6) Full code status Current Visit: Yes Status: Acute Base Code: Z78.9 - OTHER SPECIFIED HEALTH STATUS Comment: 11/05/18: -Pt. is a full code - Hospitalization Course Disposition: Acute Care Hospital Transfer Hospital Course: Mrs. Graham is a 78 year-old female who presented to the ED on 11/04/18 for a recheck of c. diff toxin diarrhea that was diagnosed 2 days prior. She had been taking flagyl 500mg tid as instructed. She c/o of persistent diarrhea, no appetite, and only able to tolerate small amts of oral fluids. Crampy abdominal discomfort, no blood in stool, pt. was concerned of no improvement. Stool culture collected on 11/02 also pos for salmonella. Her history includes: asthma, HTN, GERD, diverticulitis, IBS, fibro, degenerative cervical disc disease, lymphocytosis, and panic attacks. In the ED, her vitals were: BP 121/82, HR 107, RR 20, 97% on room air and 98.8F. Her labs revealed a K of 2.9 with dehydration. PO K+ 20mEq given and K+ 20mEq added to IV fluids. She was admitted for hyopkalemia and dehydration secondary to c. diff diarrhea. 11/05/18: Pt. continues to have several loss stools, occ incontinent of stool. Changed from flagyl to PO vanco- 125mg q6h. Will monitor for response, awaiting sensitivity from salmonella stool culture. Repeat labs this am revealed K+ of 2.9, mag 1.2 and phos 1.4. Ordered 40mEq K in 1000ml NS at 150/hr. Tele ordered. Will plan to replace mag with 6g. Will discuss transfer to facility with higher level of acuity for electrolyte replacement (no IV phos available at [facility], central line access preferred). Spoke with Dr. Mcelroy ([facility] Hospitalist) and she accepts transfer. PCP: Dr. Mendoza Procedures: Cardiology Procedures 11/05/18 09:18 Telemetry [Studio Engineer] .Continuous Abnormal Labs: Abnormal Lab Results 11/04/18 11/04/18 11/04/18 Range/Units 14:20 14:20 15:40 Hct 34.4 L (35.0-47.0) % MCV 80.8 L (81-97) fl RDW 15.1 H (11.5-14.5) % MPV 10.7 H (7.4-10.4) fl Monocytes 16.0 H (0-9) % Sodium 133 L (136-145) mmol/L Potassium 2.9 L* (3.4-4.5) mmol/L Chloride 92 L (98-107) mmol/L Carbon Dioxide 21.0 L (22-29) mmol/L Anion Gap 20.0 H (7-16) BUN (8-23) mg/dL Calcium (8.8-10.2) mg/dL Phosphorus (2.5-4.5) mg/dL Magnesium (1.6-2.4) mg/dL Urine Ketones 15 mg/dl H (NEGATIVE) Urine Blood Small H (NEGATIVE) 11/05/18 11/05/18 Range/Units 08:30 08:30 Hct (35.0-47.0) % MCV (81-97) fl RDW (11.5-14.5) % MPV (7.4-10.4) fl Monocytes (0-9) % Sodium 135 L (136-145) mmol/L Potassium 2.9 L* (3.4-4.5) mmol/L Chloride (98-107) mmol/L Carbon Dioxide 20.0 L (22-29) mmol/L Anion Gap 17.0 H (7-16) BUN 7 L (8-23) mg/dL Calcium 8.1 L (8.8-10.2) mg/dL Phosphorus 1.4 L (2.5-4.5) mg/dL Magnesium 1.2 L (1.6-2.4) mg/dL Urine Ketones (NEGATIVE) Urine Blood (NEGATIVE) Condition at Discharge: (2) Stable Discharge Diagnosis: C. diff, hypokalemia, hypomagnesemia, hypophosphatemia VTE Discharge VTE Reason For No Overlap Therapy: Not Indicated Discharge Medications - Discharge Medications Home Medications: Ambulatory Orders Estradiol 1 patch TD WEEKLY 06/06/15 [Last Taken 11/04/18] Lisinopril [Zestril] 10 mg PO DAILY 06/06/15 [Last Taken 11/04/18] Omeprazole 10 mg PO DAILY 06/06/15 [Last Taken 11/04/18] Biotin 1 mg PO DAILY 11/02/18 [Last Taken 11/04/18] [place]-3/Dha/Epa/Fish Oil [Fish Oil 1,000 mg Softgel] 1 each PO DAILY 11/02/18 [Last Taken 11/04/18] Dicyclomine HCl [Bentyl] 20 mg PO QIDACHS PRN cap 11/05/18 [Last Taken Unknown] Discharge Plan - Discharge Instructions Activity at Discharge: Increase Activity as Tolerated Diet at Discharge: Advance to Usual Diet Quality Measures - Quality Measures Quality Measures: Advance Directives, Documentation of Current Medications in Medical Record, Elder Maltreatment Screen and Follow-Up Plan, Screening for High Blood Pressure and F/U Documented - Current Medications Quality Measure: Measure #130: Documentation of Current Medications Documentation of Current Medications: <Current Medications Documented/Reviewed> [G8427] - Blood Pressure Screening Quality Measure: Screening for High Blood Pressure and Follow-Up Documented Does Patient Have Any of the Following: Active Dx of HTN Blood Pressure Classification: Pre-Hypertensive BP Reading Systolic Measurement: 121 Diastolic Measurement: 82 Screening for High Blood Pressure: Patient Exclusion, Hx of HTN [G9744] - Advance Directives Quality Measure: Measure #47: Care Plan Advance Directives Established: No Advance Directives Information Provided To Patient: No Advance Directives on File: No Living Will: Yes Power of Film Color Tester: No Advance Care Planning: <Care Plan/Decision Maker Documented; Discussed & Documented> [[id number]] - Elder Abuse Suspicion Index Screening: Elder Abuse Suspicion Index Screening Rely on people for bathing, dressing, shopping, banking, etc: No Prevented from getting food, clothes, medication, etc: No Made to feel shamed or threatened by someone: No Forced to sign papers or use money against will: No Feel afraid, touched in ways not wanted or hurt physically: No Poor eye contact, withdrawn, malnourished, cuts or bruises: No Screening Result: Negative result EASI Reference Information: Stephani SPENCE, Hammad C, Girma D, Joanna Gatica.Development and validation of a tool to assist physicians identification of elder abuse: The Elder Abuse Suspicion Index (EASI ). Journal of Elder Abuse and Neglect, 2008; 20 (3): 276-300. - Elder Maltreatment Screen Quality Measures: Elder Maltreatment Screen and Follow-Up Plan Elder Maltreatment Screen: <Negative, No Follow-Up Plan Required> [G8734]
== END 2018-11-05 14:40 | disposition short-term general hospital (02) ==
LOC: ER 13:57 → MEDSURG 17:07
PROVIDERS: ADMIT Internal Medicine; ATTEND Internal Medicine
DX: A04.72 Enterocolitis due to Clostridium difficile, not specified as recurrent (principal); E87.6 Hypokalemia; A02.9 Salmonella infection, unspecified; E83.42 Hypomagnesemia; I10 Essential (primary) hypertension; K21.9 Gastro-esophageal reflux disease without esophagitis; D72.820 Lymphocytosis (symptomatic); M79.7 Fibromyalgia; F41.0 Panic disorder [episodic paroxysmal anxiety]
CPT/HCPCS: 83735; 84100; 80048 ×2; 81001; 85027; G0378 ×2; J3370; 99220; 99285; J7030